=== PATIENT | female | born 1950 | race Caucasian/White ===

== ENCOUNTER 2020-04-15 06:32 | Day surgery (SDC) | payer MEDICARE, SELFPAY ==
--- NOTE | 2020-04-02 13:17 | MHC.SHP ---
Pre-Procedural Eval Section A The patient is an INPATIENT: No The History & Physical has been completed within 30 days and I have reviewed it.: Yes Section B Chief Complaint: Right Eye Cataract Allergies: Allergies Allergy/AdvReac Type Severity Reaction Status Date / Time No Known Allergies Allergy Unverified 02/01/20 17:48 Plan Diagnosis/Plan: Unchanged Patient has been examined and remains a candidate for the planned procedure
[2020-04-05 10:32] VITALS: BMI 25.2
--- NOTE | 2020-04-08 14:17 | P.CONAN_ITS ---
Documented by User: Janine Bazan 04/08/20 14:17 HPI - Anesthesia Eval Consult details Narrative: 69yo F for Cataract Extraction No [facility] Past Medical History Medical History Asthma in remission Diabetes Eczema Surgical History Surgical History No pertinent past surgical history Social History Social History Are you a primary acute care clinical nurse specialist to a significant other at home: No Do you presently have visiting nurse or other home services: No Smoking Status: Never smoker Use of substances other than those prescribed or required for medical reasons: No Have you been hit, kicked, punched, or otherwise hurt by someone within the past year? If so, by whom?: No Advance Directives: No Advance Directives Information Provided: No Advance Directives on File: No Meds Allergies Allergy/AdvReac Type Severity Reaction Status Date / Time aloe AdvReac Rash Verified 04/05/20 10:29 lanolin AdvReac Rash Verified 04/05/20 10:29 Home Medications Medication Instructions Recorded Confirmed Type glipizide 1 tab PO BID 04/05/20 04/05/20 History loratadine [Claritin] 10 mg PO DAILY 04/05/20 04/05/20 History metformin 1 tab PO BID 04/05/20 04/05/20 History nbgypwmublds-lsdhtpyz-dndibt 1 tab PO DAILY 04/05/20 04/05/20 History [Centrum Silver] Exam Exam Date and Time: April 08, 2020 1417 Height,Weight and Vital Signs: Height 5 ft 7 in Weight 73.028 kg Assessment and Plan Assessment Anesthesia Assessment: Chart Reviewed Documented by User: Kelsey Sibley 04/15/20 07:23 [facility] Past Medical History Medical History Asthma in remission Diabetes Eczema Surgical History Surgical History No pertinent past surgical history Social History Social History Are you a primary acute care clinical nurse specialist to a significant other at home: No Do you presently have visiting nurse or other home services: No Smoking Status: Never smoker Use of substances other than those prescribed or required for medical reasons: No Have you been hit, kicked, punched, or otherwise hurt by someone within the past year? If so, by whom?: No Advance Directives: No Advance Directives Information Provided: No Advance Directives on File: No Meds Allergies Allergy/AdvReac Type Severity Reaction Status Date / Time aloe AdvReac Rash Verified 04/05/20 10:29 lanolin AdvReac Rash Verified 04/05/20 10:29 Home Medications Medication Instructions Recorded Confirmed Type glipizide 1 tab PO BID 04/05/20 04/05/20 History loratadine [Claritin] 10 mg PO DAILY 04/05/20 04/05/20 History metformin 1 tab PO BID 04/05/20 04/05/20 History dkmkbpumhqxs-gfzxarqb-jwjhtj 1 tab PO DAILY 04/05/20 04/05/20 History [Centrum Silver] Exam Airway Mallampati Class: I Neck ROM: Full Loose/Missing/Broken Teeth: No Heart: RRR Lungs: CTA Assessment and Plan Assessment Anesthesia Assessment: Anesthesia Plan Discussed and Chart Reviewed Final Anesthetic Review NPO: Yes ASA Class: II Final Preanesthetic Review: Meds/Allgs Chart Reviewed, Consent Obtained/Reviewed and Anes Risks/Benef Reviewed Patient Risk: Low Procedure Risk: Low Anesthetic Plan Anesthetic Plan: MAC: Disposition: Standard PACU
[2020-04-15 06:48] VITALS: BP 136/55; RESP 16; TEMP 36.1; O2SAT 96
[2020-04-15 07:06] LABS: Glucose, Whole Blood 115 mg/dL (60-115)
[2020-04-15] MEDS: Lactated Ringers 500 ML 50 ML IV (07:13)
[2020-04-15] MEDS: Tetracaine HCl/PF 0.5% Oph Sol 4 ML DROPS 1 DROP EYE-RIGHT (07:22)
[2020-04-15] MEDS: Tropicamide 1 % Ophth Sol 3 ML BTL 1 DROP EYE-RIGHT ×3 (07:24→07:32)
[2020-04-15 07:36] VITALS: BP 107/53; PULSE 73; RESP 16; O2SAT 96
[2020-04-15 08:11] VITALS: BP 101/77; PULSE 92; RESP 16; TEMP 36.1; O2SAT 92
--- NOTE | 2020-04-15 08:14 | HO.PNOPHT ---
Ophthalmology Procedure Procedure Date of Service: 04/15/20 Ophthalmology Viscoelastic: Healon Duet Dual Pack Pro Ophthalmology Lenses: TECGWEN [id number] (20) Procedure Notes: PREOPERATIVE DIAGNOSIS: Decreased visual acuity right eye secondary to cataract POSTOPERATIVE DIAGNOSIS: Same PROCEDURE: Right cataract extraction with intraocular lens insertion SURGEON: Francis Chino M.D. ANESTHESIA: Topical/MAC ESTIMATED BLOOD LOSS: None COMPLICATIONS: None After obtaining informed consent, the patient was brought to the operating room suite and placed in the supine position. After adequate sedation per anesthesia, topical drops of Tetracaine were given to the right eye. The eye was then prepped and draped in the usual sterile fashion. The operating room microscope was then positioned over the operative eye and a lid speculum placed. A paracentesis was created. Viscoelastic was then instilled into the anterior chamber. A three plane incision was then created temporally, utilizing a 2.85 mm keratome. Capsulotomy forceps were then utilized to create a circular tear capsulotomy. Hydrodissection and hydrodelineation were carried out until adequate mobilization of the nucleus occurred. Phacoemulsification was then utilized to remove the dense central nucleus followed by removal of the cortical material utilizing the automated aspiration irrigation unit. Viscoelastic was instilled into the posterior capsular bag followed by placement of a posterior chamber intraocular lens without difficulty. The residual Viscoelastic was then removed utilizing the automated IA machine. The wound was checked and found to be watertight. The patient tolerated the procedure well and the lid speculum was removed. Intracameral injection of Vigamox 0.1 mL followed by a subtenon injection of Kenalog-40 0.2 mL were administered. The patient will be seen in the a.m.
== END 2020-04-15 08:40 | disposition home or self-care (01) ==
PROVIDERS: PCP Family Medicine; Visit Provider Ophthalmology
PROC: (CPT 66985; principal; 2020-04-15 08:20)
DX: H25.11 Age-related nuclear cataract, right eye (principal); E11.9 Type 2 diabetes mellitus without complications; Z79.84 Long term (current) use of oral hypoglycemic drugs
CPT/HCPCS: 66984; 82947; J2250; J3010; J3300; V2632

== ENCOUNTER 2023-02-23 09:04 | Outpatient (REF) | payer MEDICARE, SELFPAY | END 2023-02-23 09:05 | disposition home or self-care (01) | LOC: HO.CHCLDS 09:04 | PROVIDERS: Visit Provider Family Medicine | DX: Z11.4 Encounter for screening for human immunodeficiency virus [HIV] (principal); E11.65 Type 2 diabetes mellitus with hyperglycemia | CPT/HCPCS: 36415; 80053; 80061; 85025; 86803; 87389 ==

== ENCOUNTER 2023-03-04 16:20 | Outpatient (REF) | payer MEDICARE, SELFPAY ==
[2023-03-04 18:23] LABS: Appearance Urine Clear; Color Urine Yellow; Glucose Urine UA Negative (Negative); Leukocyte Esterase Urine Trace (Negative); Nitrite Urine Negative (Negative); PH 8.5 (5.0-9.0); UMIC TRIGGER UACC YES; Urine Blood Negative (Negative); Urine Ketones Negative (Negative); Urine Protein Negative (Neg-Trace)
[2023-03-04 18:28] LABS: Bacteria Urine None Seen (None Seen); RBC Urine 0-2 /HPF (0-2); Squamous Epithelial Cell Urine 0-2 /HPF (0-2); WBC Urine 0-5 /HPF (0-5)
[2023-03-04 18:36] LABS: Creatinine Urine 31.57 mg/dL; Microalbumin Urine < 5.0 mg/L
== END 2023-03-04 16:21 | disposition home or self-care (01) ==
LOC: HO.CHCLNP 16:20
PROVIDERS: Visit Provider Family Medicine
DX: E11.65 Type 2 diabetes mellitus with hyperglycemia (principal); N32.81 Overactive bladder; R82.90 Unspecified abnormal findings in urine
CPT/HCPCS: 81001; 82570; 87086

== ENCOUNTER 2024-08-14 10:33 | Outpatient (AMB) | payer MEDICARE, SELFPAY ==
--- OUTSIDE RECORDS SUMMARY | 2024-08-14 11:52 | XMS_ITS | Encounter Summary ---
Author Organization [employer] Address [address] [place] [address] Care Team Providers Care Operations Project Manager Name Role Phone Meagan Delgado MD Primary Care Provider [phone] Encounter Details Date Type Department Care Team (Late st Contact Info) Description 02/29/2024 Orders Only [facility] [address], [place] [id number] ProviderAngie MD Social History Tobacco Use Types Packs/Day Years Used Date Smoking Tobacco: Never Passive Smoke Exposure: Never Smokeless Tobacco: Never Alcohol Use Standard Drinks/Week Comments Never 0 (1 standard drink = 0.6 oz pur e alcohol) Depression Answer Date Recorded Patient Health Questionnaire-9 Score 1 01/28/2023 Housing Stability Answer Date Recorded What is your housing situation today? I have maritza thomas 03/01/[address] you li ve. Do you have problems with any of the following? None of the above 03/01/2023 Food Insecurity Answer Date Recorded Within the past 12 months, y ou worried that your food would run out before you got money to buy more: Never True 03/01/2023 Within the past 12 months,th e food you bought just didn't last and you didn't have enough money to get more: Never True Transportation Answer Date Recorded In the past 12 months, has l ack of transportation kept you from medical appts, meetings, work or from getting things needed for daily living? No 03/01/2023 Utilities Answer Date Recorded In the past 12 months, has t he electric, gas, oil or water company threatened to shut off services in your home? No 03/01/2023 Depression Answer Date Recorded Patient Health Questionnaire-2 Score 0 01/28/2023 Comments Unknown Sex and Gender Information Value Date Recorded Sex Assigned at Female 12/02/2022 12:34 PM EDT Legal Sex Female 12:33 PM EDT Gender Identity Female 12/02/2022 12:34 PM EDT Sexual Orientation Don't know 12/02/2022 12 :34 PM EDT documented as of this encounter Plan of Treatment Not on file documented as of this encounter Procedures Procedure Name Priority Date/Time Associated Diagnosis Comments MAMMOGRAPHY Routine 02/21/2024 10:29 AM EDT documented in this encounter Results * Mammography (02/21/2024 10:29 AM EDT) Mammogram BIRADS 1 Normal, Abnormal, BIRADS 1 , BIRADS 2 Anatomical Region Laterality Modality Other Historical Provider HEALTH MAINTENANCE Edited Result - Final documented in this encounter Visit Diagnoses Not on filedocumented in this encounter Additional Health Concerns Assessment Noted Time PHQ-9 Depression Total Score: 1 01/29/20 23 11:13 AM EDT documented as of this encounter Care Teams Operations Project Manager Relationship Specialty Start Date End Date Meagan Delgado MD [address] [place] [address] PCP - General Family Medicine 01/28/23 Francis Chino MD [address] [place] [address] Referring Physician Ophthalmology 03/13/24 documented as of this encounter
--- OUTSIDE RECORDS SUMMARY | 2024-08-14 11:52 | XMS_ITS | Clinical Summary ---
Author Organization [employer] Address [address] [place] [address] Care Team Providers Care Dimmer Board Operator Name Role Phone Meagan Delgado MD Primary Care Provider [phone] Allergies Active Allergy Reactions Criticality Noted Date Comments Aloe 01/27/2023 Lanolin 01/27/2023 Medications triamcinolone (Kenalog) 0.5 % ointment Apply topically 2 times daily. 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 Active Multiple Vitamins-Mineral s (Centrum Silver Women 50+) tablet Take by mouth. Act ailyn Blood Pressure kit 1 Units Once per day. 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 Follow up if Sx worsen. Abnormal mammogram of left breast 02/17/2024 Eczema 03/04/2023 Assessment & Plan (03/04/2023 4:01 PM EDT): Patient with concerns of Eczema will be prescribed Kenalog to apply on affected area. Type 2 diabetes mellitus with hyperglycemia 01/15 Assessment & Plan (03/13/2024 10:22 AM EDT): Controlled, A1c at goal, 5.7%. Follow up in 6 months. Ordering lab work for further evaluation. Assessment & Plan (09/06/2023 8:34 PM EDT): Controlled. Cont current regimen. Followup 6 months Patient reports was told by insurance that the reason the sensor was not approved was because it was missing the diagnosis of diabetes, explain to patient that usual criteria is insulin use, but will trial another PA and be sure that diagnosis is attached. Assessment & Plan (03/04/2023 3:57 PM EDT): Controlled: will keep monitoring glucose levels. -Advised patient in how to use glucose reader sensor. Assessment & Plan (01/28/2023 11:27 AM EDT): Decrease Glipizide from 10 mg to 5 mg. Advised patient to check glucose levels BID. Will follow up in 6 weeks. OAB (overactive bladder) 01/27/2023 Assessment & Plan (03/04/2023 3:56 PM EDT): Urinalysis was requested upon visit to send for labs. Assessment & Plan (01/28/2023 11:28 AM EDT): Will send labs Allergic rhinitis 01/27/2023 Resolved Problems Problem Noted Date Diagnosed Date Resolved Date Blepharitis of left lower eyelid 09/06/2023 03/13/2024 Assessment & Plan (09/06/2023 10:05 AM EDT): Prescribing Bacitracin Ointment to relieve eye symptoms. Relevant Medications Bacitracin-Polymyxin B (Polysporin) Ophthalmic Ointment Vitamin D deficiency 01/27/2023 023 Vaginal atrophy 01/27/2023 01/28/2023 Class 1 obesity with serious comorbidity and body mass index (BMI) of 30.0 to 30.9 in adult 01/27/2023 01/28/2023 Encounters Date Type Department Care Team Description 08/14/2024 Refill [facility] MEDICINE [address] [place] [address] Meagan Delgado MD 05/19/2024 8:45 AM EST Telemedicine [facility] CHC MED & PEDS [address] [place] [address] Meagan Delgado MD Squamous blepharitis of upper and lower eyelids of both eyes (Primary Dx) 05/19/2024 Travel 05/18/2024 Telephone [facility] MEDICINE [address] [place] [address] Meagan Delgado MD Nurse Triage from Last 3 Months Immunizations Name Administration Dates Next Due DT (pediatric) 06/17/2006 Influenza Whole 02/04/2011 Influenza, IIV3, injectable 03/05/2014, 3,02/08/2012 Pneumococcal Conjugate PCV 13 03/12/2016 Pneumococcal Polysaccharide PPSV23 02/02/2019 Social History Tobacco Use Types Packs/Day Years Used Date Smoking Tobacco: Never Passive Smoke Exposure: Never Smokeless Tobacco: Never Tobacco Cessation:Counseling Given: Not Answered Alcohol Use Standard Drinks/Week Comments Never 0 (1 standard drink = 0.6 oz pur e alcohol) Depression Answer Date Recorded Patient Health Questionnaire-9 Score 0 03/13/2024 Patient Health Questionnaire-9 Score 0 03/13/2024 Last PHQ-9: Questionnaire Data Not on file 1 Housing Stability Answer Date Recorded What is your housing situation today? I have maritza thomas 03/06/[address] you li ve. Do you have problems with any of the following? None of the above 03/06/2024 Food Insecurity Answer Date Recorded Within the past 12 months, y ou worried that your food would run out before you got money to buy more: Never True 03/06/2024 Within the past 12 months,th e food you bought just didn't last and you didn't have enough money to get more: Never True Transportation Answer Date Recorded In the past 12 months, has l ack of transportation kept you from medical appts, meetings, work or from getting things needed for daily living? No 03/06/2024 Utilities Answer Date Recorded In the past 12 months, has t he electric, gas, oil or water company threatened to shut off services in your home? No 03/06/2024 Depression Answer Date Recorded Patient Health Questionnaire-2 Score 0 03/13/2024 Internet Access Answer Date Recorded Internet Access Q1 Yes 03/06/2024 Internet Access Q2 Not on file 03/06/2024 Comments Unknown Sex and Gender Information Value Date Recorded Sex Assigned at Female 12/02/2022 12:34 PM EDT Legal Sex Female 12:33 PM EDT Gender Identity Female 12/02/2022 12:34 PM EDT Sexual Orientation Don't know 12/02/2022 12 :34 PM EDT Last Filed Vital Signs Vital Sign Reading Time Taken Comments Blood Pressure 145/76 04/24/2024 12:25 PM EST With BP monitor at home Pulse 74 04/24/2024 12:25 PM EST Temperature 37.1 ??C (98.7 ??F) 03/13/2024 9 :56 AM EDT Respiratory Rate 18 03/13/2024 9:56 AM EDT Oxygen Saturation 97% 03/13/2024 9:5 6 AM EDT Inhaled Oxygen Concentration - - Weight 71.9 kg (158 lb 9.6 oz) 04/17/2024 12:02 PM EST Height 164 cm (5' 4.57 ) 03/13/2024 9:5 6 AM EDT Body Mass Index 26.75 03/13/2024 9:56 AM EDT Plan of Treatment Health Maintenance Due Date Last Done Comments CT Colonography 1950 Colonoscopy 1950 FIT 1950 Sigmoidoscopy 1950 DTaP/Tdap/Td Vaccines (1 - Tdap) 1969 Zoster Vaccines (1 of 2) 2000 FOBT 05/18/2021 05/18/2020 Lipid Panel 02/24/2024 02/23/2023 Diabetes: Urine Protein Screening 03/04/2024 03/04/2023 Diabetes: Hemoglobin A1C 09/11/2024 024, 09/06/2023, 01/28/2023 Influenza Vaccine (#1) 2024 4, 03/02/2013, 02/08/2012, Additional history exists Postponed from 01/16/2024 (Patient Refused) Mammogram 02/20/2025 02/21/2024, 11/2023, 02/08/2024, Additional history exists SDOH Screening 03/06/2025 03/06/2024 Alcohol/Substance Use Screening 03/13/2025 03/13/2024 COVID-19 Vaccine ( season) 2025 Postponed from 01/16/2024 (Patient Refused) Depression Screening 03/13/2025 03/13/2024, 03/13/20 Diabetes: Foot Exam 03/13/2025 03/13/2024, 03/13/2024, 03/13/2024, Additional history exists Tobacco Screening 03/13/2025 03/13/2024 Eye Exam 07/27/2025 RSV Patients and Patients Aged 60 years or older (1 - 1-dose 75+ series) 2025 Colorectal Cancer Screening 07/18/2026 FIT DNA/Cologuard 07/18/2026 07/19/2023, , 05/18/2020, Additional history exists Pneumococcal Vaccine: 50+ Years Completed 02/02/2019, 03/12/2016 Hepatitis C Screening Completed 02/23/2023 HIB Vaccines Aged Out No longer eligi ble based on patient's age to complete this topic HPV Vaccines Aged Out No longer eligi ble based on patient's age to complete this topic Hepatitis A Vaccines Aged Out No long er eligible based on patient's age to complete this topic Hepatitis B Vaccines Aged Out No long er eligible based on patient's age to complete this topic IPV Vaccines Aged Out No longer eligi ble based on patient's age to complete this topic Meningococcal Vaccine Aged Out No brenda thierry eligible based on patient's age to complete this topic RSV under 20 months Aged Out No longe r eligible based on patient's age to complete this topic Rotavirus Vaccines Aged Out No longer eligible based on patient's age to complete this topic Procedures Procedure Name Priority Date/Time Associated Diagnosis Comments POCT GLYCATED HEMOGLOBIN, TOTAL Routine 03/13/2024 10:03 AM EDT Type 2 diabetes mellitus with hyperglycemia, 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 COLON CANCER SCREEN Routine 07/19/2023 12:05 PM EST Colon cancer screening ALBUMIN, RANDOM URINE W/CREATININE Routine 03/04/2023 12:00 AM EDT Type 2 diabetes mellitus with hyperglycemia, without long-term current use of insulin (CMS/HCC) HEPATITIS C ANTIBODY Routine 02/23/2023 9:07 AM EDT Type 2 diabetes mellitus with hyperglycemia, without long-term current use of insulin (CMS/HCC) LIPID PANEL, STANDARD Routine 02/23/2023 9:07 AM EDT Type 2 diabetes mellitus with hyperglycemia, without long-term current use of insulin (CMS/HCC) FIT DNA/COLOGUARD CANCER SCREENING Routine 05/18/2020 from Last 3 Months or Most Recently Relevant to Health Maintenance Results * POCT HGB A1C (03/13/2024 10:03 AM EDT) Hemoglobin A1C 5.7 4.0 - 6.0 % QC Media Lot # [id number] Lot# Expiration Date Blood 03/13/2024 10:0 3 AM EDT Meagan Delgado MD POINT OF CARE TEST ENTER/EDIT ORDERABLES Final Result * HP Diabetic Foot Exam (03/13/2024) Narrative Meagan Delgado MD - 03/13/2024 View notes, bunion in R foot. Dry skin. Meagan Delgado MD HEALTH MAINTENANCE Final Resu lt * Hm Mammography (02/21/2024 10:29 AM EDT) Mammogram BIRADS 1 Normal, Abnormal, BIRADS 1 , BIRADS 2 Anatomical Region Laterality Modality Other Historical Provider MD HEALTH MAINTENANCE Edited Result - Final * Cologuard?? colon cancer screening (07/19/2023 12:05 PM EST) Cologuard Result Negative Negative 07/27/19 24 5:24 PM EDT [employer] (CLIA #:[id number]) Comment: NEGATIVE TEST RESULT. A negative Cologuard result indicates a low likelihood that a colorectal cancer (CRC) or advanced adenoma (adenomatous polyps with more advanced pre-malignant features) ??is present. The chance that a person with a negative Cologuard test has a colorectal cancer is less than 1 in 1500 (negative predictive value >99.9%) or has an ??advanced adenoma is less than ??5.3% (negative predictive value 94.7%). These data are based on a prospective cross-sectional study of 10,000 individuals at average risk for colorectal cancer who were screened with both Cologuard and colonoscopy. (Perico Dhaliwal al, N Engl J Med 2014;370(14):1286- 1297) The normal value (reference range) for this assay is negative. COLOGUARD RE-SCREENING RECOMMENDATION: Periodic colorectal cancer screening is an important part of preventive healthcare for asymptomatic individuals at average risk for colorectal cancer. ??Following a negative Cologuard result, the [place] [employer] Society and U.S. Multi-Society Task Force screening guidelines recommend a Cologuard re-screening interval of 3 years. References: [place] [employer] Guideline for Colorectal Cancer Screening: https://www.cancer.org/cancer/mvuaz-npjpba-ylhbpx/tttrdjdzo-yivicpbfc-tjunido/ac s-rec ommendations.html.; Jefferson DK, Nate CR, Kwabena CobbK, Colorectal Cancer Screening: Recommendations for Physicians and Patients from the U.S. Multi-Society Task Force on Colorectal Cancer Screening , Am J Gastroenterology 2017; 112:7709-4934. TEST DESCRIPTION: Composite algorithmic analysis of stool DNA-biomarkers with hemoglobin immunoassay. ?? Quantitative values of individual biomarkers are not reportable and are not associated with individual biomarker result reference ranges. Cologuard is intended for colorectal cancer screening of adults of either sex, 45 years or older, who are at average-risk for colorectal cancer (CRC). Cologuard has been approved for use by the U.S. FDA. The performance of Cologuard was established in a cross sectional study of average-risk adults aged 50-84. Cologuard performance in patients ages 45 to 49 years was estimated by sub-group analysis of near-age groups. Colonoscopies performed for a positive result may find as the most clinically significant lesion: colorectal cancer [4.0%], advanced adenoma (including sessile serrated polyps greater than or equal to 1cm diameter) [20%] or non- advanced adenoma [31%]; or no colorectal neoplasia [45%]. These estimates are derived from a prospective cross-sectional screening study of 10,000 individuals at average risk for colorectal cancer who were screened with both Cologuard and colonoscopy. (Perico Dhaliwal al, N Engl J Med 2014;370(14):3185-4445.) Cologuard may produce a false negative or false positive result (no colorectal cancer or precancerous polyp present at colonoscopy follow up). A negative Cologuard test result does not guarantee the absence of CRC or advanced adenoma (pre-cancer). The current Cologuard screening interval is every 3 years. ([place] [employer] Society and U.S. Multi-Society Task Force). Cologuard performance data in a 10,000 patient pivotal study using colonoscopy as the reference method can be accessed at the following location: www.[employer].Edventures/results. Additional description of the Cologuard test process, warnings and precautions can be found at www.[employer].com. Stool specimen (specimen) 07/19/2023 12:05 PM EST 07/20/2023 10:52 AM EST Meagan Delgado MD LAB MOLECULAR DIAGNOSTICS ORD ERABLES Final Result [facility] (CLIA #:[id number]) [place] [address], [place] [phone] * Albumin, Random Urine W/Creatinine (03/04/2023 12:00 AM EDT) Pathologist [facility] Creatinine, Urine 31.57 mg/dL [facility] Microalbumin Urine <5.0 mg/L [facility] Microalbum Creatinine Ratio Ur TNP <30 ug/mg cr [facility] Comment:Unable to calculate albumin/creatinine ratio due to lowmicroalbumin or creatinine result. Urine (Urine, Random) 03/04/2023 03/04/2023 Meagan Delgado MD LAB URINE ORDERABLES Final Re sult Performing Organization Address [facility] Co de Phone Number [facility] [address] [place] [phone] * Hepatitis C Ab (02/23/2023 9:07 AM EDT) Pathologist [facility] Hepatitis C Antibody Nonreactive Nonreactive [facility] Comment:Antibodies to HCV no t detected; does not exclude early acuteHCV infection. Blood 02/23/2023 9:07 AM EDT 02/23/2023 2:06 PM EDT Meagan Delgado MD LAB BLOOD ORDERABLES Final Re sult Performing Organization Address [facility]/ZIP Co de Phone Number [facility] [address] [place] [phone] * (ABNORMAL) Lipid Panel, Standard (02/23/2023 9:07 AM EDT) Triglycerides 85 <150 mg/dL [facility] Comment:Desirable Triglyceri de: less than 150 mg/dLBorderline High Triglyceride 150-199 mg/dLHigh Triglyceride: 200-499 mg/dLVery High Triglyceride: greater than or equal to 5OO mg/dL Cholesterol 184 <200 mg/dL [facility] Comment:Desirable Cholestero l: less than 200 mg/dLBorderline High Cholesterol: 200-239 mg/dLHigh Cholesterol: greater than 239 mg/dL LDL Cholesterol Calculated 107(H) <100 mg/dL [facility] Comment:Desirable LDL: less than 100 mg/dLNear Optimal/Above Optimal LDL: 110- 129 mg/dLBorderline High LDL: 130-159 mg/dLHigh LDL: 160-189 mg/dLVery High LDL: greater than or equal to 190 mg/dL HDL Cholesterol 60 >40 mg/dL [facility] Comment:Desirable HDL: great er than 40 mg/dL Note: This HDL assay may give artificially low results in patients with liver disease. Blood Venous blood specimen / Unknown 02/23/2023 9:07 AM EDT 02/23/2023 2:06 PM EDT Meagan Delgado MD LAB BLOOD ORDERABLES Final Re sult [facility] [address] [place] [address] [phone] * FIT DNA/Cologuard Cancer Screening (05/18/2020) Cologuard Cancer Screen Negative Stool Historical Provider HEALTH MAINTENANCE Final Result from Last 3 Months or Most Recently Relevant to Health Maintenance Insurance [employer] HMO Care Teams Dimmer Board Operator Relationship Specialty Start Date End Date Meagan Delgado MD [address] [place] [phone] PCP - General Family Medicine 01/28/23 Francis Chino MD [address] [place] [address] Referring Physician Ophthalmology 03/13/24
--- OUTSIDE RECORDS SUMMARY | 2024-08-14 11:52 | XMS_ITS | Encounter Summary ---
Author Organization [employer] Address [address] [place] [address] Care Team Providers Care Technical Staff Engineer Name Role Phone Meagan Delgado MD Primary Care Provider [phone] Reason for Visit * Reason Onset Date Comments Call Back Request 07/13/2023 Encounter Details Date Type Department Care Team ([facility] Contact Info) Description 07/13/2023 Telephone [facility] CHC MED & PEDS [address] [place] [address] Meagan Delgado MD [address] [place] [address] Call Back Request Social History Tobacco Use Types Packs/Day Years [...] PM EDT documented as of this encounter Miscellaneous Notes * Telephone Encounter - Asha Suárez RN - 07/14/2023 4:12 PM EST TC returned to number below. No answer. Reached automated VM. Did not leave message. Review of patient's chart shows glipizide prescribed on 03/09/23 with 5 refills and patient has f/u with PCP on 08/09/23, so patient should have enough medication. TC placed to patient. Message received saying patient not accepting calls at this time. Routing back to [facility] nurses to try again. Tc from allison with [facility] requesting to speak with a nurse in regards to recommendation on medication for diabetes. Please contact allison at [phone] * Telephone Encounter - Genesis Rodriguez - 07/13/2023 1:26 PM EST Tc from allison with [facility] requesting to speak with a nurse in regards to recommendation on medication for diabetes. Please contact allison at [phone] documented in this encounter Plan of Treatment Not on file documented as of this encounter Visit Diagnoses Not on filedocumented in this encounter Additional Health Concerns Assessment Noted Time PHQ-9 Depression Total Score: 1 01/29/20 23 11:13 AM EDT documented as of this encounter Care Teams Technical Staff Engineer Relationship Specialty Start Date End Date Meagan Delgado MD [address] [place] [phone] PCP - General Family Medicine 01/28/23 Francis Chino MD [address] [place] [address] Referring Physician Ophthalmology 03/13/24 documented as of this encounter
--- OUTSIDE RECORDS SUMMARY | 2024-08-14 11:52 | XMS_ITS | Encounter Summary ---
Author Organization [employer] Address [address] [place] [address] Care Team Providers Care Junior Recruiter Name Role Phone Meagan Delgado MD Primary Care Provider [phone] Reason for Visit * Reason Onset Date Comments Med Refill 08/14/2024 Encounter Details Date Type Department Care Team ([facility] st Contact Info) Description 08/14/2024 Refill [facility] MEDICINE [address] [place] [address] Meagan Delgado MD [address] [place] [address] Social History Tobacco Use Types Packs/Day Years [...] is your housing situation today? I have maritzamilton thomas 03/06/[address] you [...] encounter Miscellaneous Notes * Telephone Encounter - Sophie Evans - 08/14/2024 9:25 AM EDT TC from pt requesting medication refill. Medications needing refill : metFORMIN (Glucophage) 500 MG tablet To be sent to: [facility] [address] [place] [address] documented in this encounter Plan of Treatment Not on file documented as of this encounter Visit Diagnoses Not on filedocumented in this encounter Additional Health Concerns Assessment Noted Time PHQ-9 Depression Total Score: 0 03/13/20 24 10:00 AM EDT documented as of this encounter Care Teams Junior Recruiter Relationship Specialty Start Date End Date Meagan Delgado MD [address] [place] [address] PCP - General Family Medicine 01/28/23 Francis Chino MD [address] [place] [address] Referring Physician Ophthalmology 03/13/24 documented as of this encounter
[2024-08-14 11:59] VITALS: BP 110/64; PULSE 73; O2SAT 98
--- NOTE | 2024-08-14 11:59 | AM.OFFWIN_ITS ---
Intake Vital Signs 08/14/24 11:59 Weight 164 lb BP 110/64 Blood Pressure Location Rt brachial Position Sitting Pulse 73 Pulse Source Pulse Oximeter Pulse Oximetry (%) 98 Oxygen Delivery Method Room Air Intake Visit Reasons: [employer]-infection eye lids Intake Note: Patient here for eye lid redness that has been present on and off for a couple of weeks. Patient Tobacco Use Status: Never used Tobacco Allergies aloe Adverse Reaction (Verified 08/14/24 11:59) Rash lanolin Adverse Reaction (Verified 08/14/24 11:59) Rash Do you need a note to return to daycare/school/sports/work: No HPI HPI Comments History of Present Illness Details History of Present Illness - The patient is a 73 year old female pr esenting with swollen, red, and itchy eyelids. - The symptoms began approximately two w eeks ago, with notable swelling and oozing of the eyelids, especially evident upon awakening. - The eyelids feel warm, exhibit marked itchiness and dryness, leading to cracking and, presumably, bacterial entry. - The patient has experienced similar ep isodes previously, with incomplete resolution and recurrence of symptoms. - Eases symptoms temporarily using a was hcloth with cold water. - The patient has documented allergic re actions to certain scents like red cedar and specific colognes but does not have pollen allergies. Physical Exam General: Cooperative, healthy appearing, comfortable, no acute distress and well developed Orientation: Patient oriented x3 Limitations: No limitations Head: Normal to inspection Ears: Hearing grossly normal bilaterally Nose: Normal External nose present Face and sinus: Normal facial exam Eyes: bilateral upper eyelids with cracking, erythema, slight swelling and warmth. No discharge noted. eyes and surrounding skin area otherwise normal with PERRLA and EOM Neck: Normal visual inspection and Yes full ROM Respiratory: Normal respiratory effort and able to speak in complete sentences. Skin: No rashes or lesions noted, but eyelids appear dry with cracking Neuro: Patient oriented x3 Extremities: Normal to inspection [facility] Medical History Asthma in remission Diabetes Eczema Surgical History No pertinent past surgical history Social History Are you a primary disabilities caregiver to a significant other at home: No Do you presently have visiting nurse or other home services: No Patient Tobacco Use Status: Never used Tobacco Review of Systems Const All systems reviewed & are unremarkable except as noted in HPI and below Physical Exam Vital Signs: Last Vital Signs Pulse 73 08/14/24 11:59 BP 110/64 08/14/24 11:59 Pulse Ox 98 08/14/24 11:59 Oxygen Delivery Method Room Air 08/14/24 11:59 Assessment & Plan Assessment & Plan (1) Cellulitis: Code(s): L03.90 - Cellulitis, unspecified Qualifiers: Site of cellulitis: face Qualified Code(s): L03.211 - Cellulitis of face Plan: I have prescribed Keflex for a suspected bacterial infection of the eyelids, with instructions to take the medication four times a day for seven days. The patient is advised on keeping the area hydrated with Aquaphor to address dryness and cracking. Usage of a cold compress is recommended for symptomatic relief. The patient should avoid known scent allergens to prevent exacerbation of all ergic symptoms. The prescription has been sent to the patient's pharmacy in [place] for collection. Patient was informed and verbally consented to the use of an ambient scribe for clinic note documentation during this visit. Medications: New cephalexin 500 mg PO Q6H 28 caps 0RF Coding Level of Care Code New Pt Level 3 (81609) Diagnoses Cellulitis of face L03.211 Site of cellulitis: face
== END 2024-08-14 14:00 | disposition home or self-care (01) ==
PROVIDERS: PCP Family Medicine; Visit Provider Physician Assistant
DX: L03.211 Cellulitis of face (principal)

== ENCOUNTER → 2024-08-14 10:33 | Outpatient (BNVA) | payer MEDICARE, SELFPAY | PROVIDERS: PCP Family Medicine; Visit Provider Physician Assistant | DX: L03.211 Cellulitis of face (principal) | CPT/HCPCS: 99202 ==